=== PATIENT | male | born 1960 | race Caucasian/White ===

== ENCOUNTER 2019-10-02 13:02 | Outpatient (CLI) | payer BC ==
--- NOTE | 2019-10-02 13:43 | CT ---
CT lumbar spine noncontrast HISTORY: Low back pain. Left leg radiculopathy. FINDINGS: Images partially showing the posterior abdomen demonstrate a large oval calcification with in the left renal pelvis, measuring at least 2.6 cm greatest oblique diameter. Ureter is decompressed. T12-L1, L1-2, L2-3: Mild osteophytosis. Central canal and neural foramina are patent. L3-4: Osteophytosis. Mild to moderate stenosis of the neural foramina. No significant central canal s tenosis is evident. L4-5: Complete loss of joint space with gas disc phenomenon and minimal degenerative retrolisthesis. Posterior disc bulge, more prominent to the right of midline. Effacement of the thecal sac with moderate stenosis of the central canal. Large right posterolateral disc protrusion extends into the n eural foramen. There is severe left and very severe right foraminal stenoses. L5-S1: Bilateral pars interarticularis defects. Fragmentation of the posterior aspect of the inferior endplate of L5. Approximately 45% anterior displacement of L5 upon S1. Right posterolateral disc protrusion compresses the right nerve root. Thecal sac remains patent. Very severe bilateral foramina l stenoses. IMPRESSION: Severe degenerative changes of the lower lumbar spine as detailed above, including very s evere foraminal stenoses at the lowest 2 levels. Bilateral spondylolysis with grade 2 spondylolisthesis at the lumbosacral junction. Large left renal calculus.
== END 2019-10-02 13:03 | disposition home or self-care (01) ==
LOC: TBSIIMAG 13:02
PROVIDERS: ATTEND Physician Assistant Surgical
DX: M43.16 Spondylolisthesis, lumbar region (principal); M48.061 Spinal stenosis, lumbar region without neurogenic claudication; M54.30 Sciatica, unspecified side; M79.605 Pain in left leg; M54.5 Low back pain; M43.17 Spondylolisthesis, lumbosacral region; M47.26 Other spondylosis with radiculopathy, lumbar region; N20.0 Calculus of kidney
CPT/HCPCS: 72131

== ENCOUNTER 2019-10-26 16:19 | Outpatient (CLI) | payer BC ==
--- NOTE | 2019-10-26 16:38 | RAD ---
Lumbar spine 4 views flexion and extension HISTORY: Low back pain. FINDINGS: There is sacralization of the fifth lumbar segment. Pedicles are intact. Vertebral body hei ghts maintained. Minimal retrolisthesis at the L2-3 and L4-5 levels without abnormal translational motion upon flexion or extension. Prominent osteophytosis throughout the lower facets. Gas disc phenomenon at the L4-5 level. At the lumbosacral junction, there is 1.8 cm grade 2 spondylolisthesis on the neutral view that incre ases to 1.9 cm on the flexion view and reduces to 1.5 cm on the extension view. Large oval left renal calculus is also evident. IMPRESSION: Prominent multilevel degenerative changes throughout the lumbar spine. Translational guilherme on at the grade 2/3 lumbosacral spondylolisthesis.
== END 2019-10-26 16:20 | disposition home or self-care (01) ==
LOC: BICRAD 16:19
PROVIDERS: ATTEND Physician Assistant Surgical
DX: M43.16 Spondylolisthesis, lumbar region (principal); M47.26 Other spondylosis with radiculopathy, lumbar region; M48.061 Spinal stenosis, lumbar region without neurogenic claudication; M54.30 Sciatica, unspecified side; M79.605 Pain in left leg; M54.5 Low back pain; M43.17 Spondylolisthesis, lumbosacral region
CPT/HCPCS: 72110